=== PATIENT | female | born 1970 | race African-American/Black ===

== ENCOUNTER 2016-05-16 19:14 | Emergency (ER) | payer OTHER ==
[~2016-05-16] VITALS: Ht 167.6 cm; Wt 90.9 kg
[~2016-05-16 19:14] MED LIST: AMLO-512 PO; benadryl
[2016-05-16 19:21] VITALS: BP 132/89
[2016-05-16] MEDS ORDERED: AMLO-511 PO (19:29)
[2016-05-16] MEDS ORDERED: HYDROCODONE/ACETAMINOPHEN 5-325 MG TABLET PO ONE (20:15)
[2016-05-16] MEDS ORDERED: CLINDAMYCIN HCL 150 MG CAPSULE PO ONE (20:15)
== END 2016-05-16 20:28 | disposition home or self-care (01) ==
LOC: EMS 19:15
DX: K05.219 Aggressive periodontitis, localized, unspecified severity (principal); I10 Essential (primary) hypertension; F17.210 Nicotine dependence, cigarettes, uncomplicated
CPT/HCPCS: 99283

== ENCOUNTER 2017-01-11 21:58 | Emergency (ER) | payer BC ==
[~2017-01-11] VITALS: Ht 167.6 cm; Wt 82.7 kg
[~2017-01-11 21:58] MED LIST changes: +AMLO-511 PO; -AMLO-512 PO; -benadryl
[2017-01-11] MEDS ORDERED: AMOX TR/POT CLAV 875 MG/125 MG TABLET PO ONE (23:30)
[2017-01-11] MEDS ORDERED: OxyCODONE HCL/ACETAMINOPHEN 5-325 MG TABLET PO ONE (23:30)
[2017-01-11] MEDS ORDERED: KETOROLAC TROMETHAMINE 60 MG/2 ML VIAL IM ONE (23:30)
[2017-01-11 23:42] VITALS: BP 141/89
== END 2017-01-11 23:44 | disposition home or self-care (01) ==
LOC: EMS 22:00
DX: K04.7 Periapical abscess without sinus (principal); I10 Essential (primary) hypertension; F17.210 Nicotine dependence, cigarettes, uncomplicated
CPT/HCPCS: 96372; 99283; 99406; J1885

== ENCOUNTER 2017-03-10 20:14 | Emergency (ER) | payer BC ==
[~2017-03-10] VITALS: Ht 167.6 cm; Wt 81.8 kg
[2017-03-10 20:18] VITALS: BP 136/102
[2017-03-10 21:13] LABS: APPEARANCE,URINE CLEAR (CLEAR); BILIRUBIN,URINE NEGATIVE (NEGATIVE); GLUCOSE, URINE (UA) NEGATIVE (NEGATIVE); KETONES,URINE NEGATIVE (NEGATIVE); LEUKOCYTE ESTERASE ,URINE TRACE (NEGATIVE); NITRATE,URINE NEGATIVE (NEGATIVE); OCCULT BLOOD,URINE MODERATE (NEGATIVE); PROTEIN,URINE TRACE (NEGATIVE); UROBILINOGEN,URINE 0.2 mg/dL (<=1.0)
[2017-03-10 21:14] LABS: HCG,QUAL RESULT NEGATIVE (NEGATIVE)
[2017-03-10 21:27] LABS: BACTERIA,URINE Few /HPF (None Seen); SQUAMOUS EPITHELIAL CELL,UR Few /LPF (None Seen)
[2017-03-10] MEDS ORDERED: IBUPROFEN 800 MG TABLET PO ONE (22:00)
== END 2017-03-10 23:22 | disposition home or self-care (01) ==
LOC: EMS 20:15
DX: N39.0 Urinary tract infection, site not specified (principal); I10 Essential (primary) hypertension; F17.210 Nicotine dependence, cigarettes, uncomplicated
CPT/HCPCS: 74176; 87086; 99285

== ENCOUNTER 2017-10-13 10:26 | Emergency (ER) | payer BC ==
[~2017-10-13] VITALS: Ht 167.6 cm; Wt 85.9 kg
[2017-10-13] MEDS ORDERED: HYDR25TA PO (10:30)
[2017-10-13] MEDS ORDERED: AMLO10TA55 PO (10:30)
[2017-10-13] MEDS ORDERED: CYCLOBENZAPRINE HCL 10 MG TABLET PO ONE (11:45)
[2017-10-13] MEDS ORDERED: KETOROLAC TROMETHAMINE 60 MG/2 ML VIAL IM ONE (11:45)
[2017-10-13 12:03] LABS: BILIRUBIN,URINE NEGATIVE (NEGATIVE); GLUCOSE, URINE (UA) NEGATIVE (NEGATIVE); KETONES,URINE NEGATIVE (NEGATIVE); LEUKOCYTE ESTERASE ,URINE LARGE (NEGATIVE); NITRATE,URINE POSITIVE (NEGATIVE); OCCULT BLOOD,URINE MODERATE (NEGATIVE); PROTEIN,URINE NEGATIVE (NEGATIVE); UROBILINOGEN,URINE 0.2 mg/dL (<=1.0)
[2017-10-13 12:09] LABS: APPEARANCE,URINE HAZY (CLEAR)
[2017-10-13 12:11] LABS: BACTERIA,URINE Moderate /HPF (None Seen); SQUAMOUS EPITHELIAL CELL,UR Moderate /LPF (None Seen)
[2017-10-13 12:46] VITALS: BP 121/68
== END 2017-10-13 12:47 | disposition home or self-care (01) ==
LOC: EMS 10:27
DX: M51.36 Other intervertebral disc degeneration, lumbar region (principal); M12.88 Other specific arthropathies, not elsewhere classified, other specified site; N39.0 Urinary tract infection, site not specified; M25.471 Effusion, right ankle; M25.472 Effusion, left ankle; I10 Essential (primary) hypertension; F17.210 Nicotine dependence, cigarettes, uncomplicated; Z79.899 Other long term (current) drug therapy
CPT/HCPCS: 72131; 81001; 84703; 87077; 87086; 87186; 96372; 99285; 99406; J1885

== ENCOUNTER 2022-01-09 06:00 | Emergency (ER) | payer BC ==
[~2022-01-09] VITALS: Ht 175.3 cm; Wt 77.3 kg
[~2022-01-09 06:00] MED LIST changes: -AMLO-511 PO; +AMLO10TA55 PO; +HYDR25TA2 PO
[2022-01-09 06:02] VITALS: BP 155/101
[2022-01-09] MEDS ORDERED: ACET-66 PO (07:48)
[2022-01-09] MEDS ORDERED: BACL10TA PO (07:48)
[2022-01-09] MEDS ORDERED: TRAM-559 PO (07:48)
[2022-01-09] MEDS ORDERED: IBUP-1554 PO (07:48)
== END 2022-01-09 08:05 | disposition home or self-care (01) ==
LOC: EMS 06:00
DX: S39.012A Strain of muscle, fascia and tendon of lower back, initial encounter (principal); M54.40 Lumbago with sciatica, unspecified side; G89.29 Other chronic pain; I10 Essential (primary) hypertension; F12.90 Cannabis use, unspecified, uncomplicated; Z98.890 Other specified postprocedural states; X58.XXXA Exposure to other specified factors, initial encounter; Y93.89 Activity, other specified; Y92.89 Other specified places as the place of occurrence of the external cause; Y99.8 Other external cause status
CPT/HCPCS: 99283

== ENCOUNTER 2022-04-03 09:45 | Emergency (ER) | payer BC, MEDICAID ==
[~2022-04-03] VITALS: Ht 167.6 cm; Wt 81.8 kg
[~2022-04-03 09:45] MED LIST changes: +ACET-66 PO; +BACL10TA PO; +IBUP-1554 PO; +TRAM-559 PO
[2022-04-03 09:48] VITALS: BP 144/69
[2022-04-03] MEDS ORDERED: KETOROLAC TROMETHAMINE 30 MG/ML VIAL IM ONE (11:45)
[2022-04-03] MEDS ORDERED: LIDOCAINE 5% TRANSDERMAL PATCH TD ONE (11:45)
[2022-04-03] MEDS ORDERED: BACL10TA PO (12:18)
[2022-04-03] MEDS ORDERED: IBUP-1492 PO (12:19)
[2022-04-03] MEDS ORDERED: TRAM-559 PO (12:21)
== END 2022-04-03 12:42 | disposition home or self-care (01) ==
LOC: EMS 10:04
DX: G89.29 Other chronic pain (principal); M54.50 Low back pain, unspecified; I10 Essential (primary) hypertension; F17.210 Nicotine dependence, cigarettes, uncomplicated; F12.90 Cannabis use, unspecified, uncomplicated
CPT/HCPCS: 99283; 96372; J1885

== ENCOUNTER 2024-03-17 17:33 | Emergency (ER) | payer MEDICAID ==
[~2024-03-17] VITALS: Ht 167.6 cm; Wt 72.7 kg
[~2024-03-17 17:33] MED LIST changes: +IBUP-1492 PO; -TRAM-559 PO; +TRAM50TA5 PO
[2024-03-17 17:48] VITALS: BP 139/107; PULSE 89; RESP 18; TEMP 100.5; O2SAT 98
[2024-03-17 20:43] LABS: COVID AG,FIA SOURCE NASAL SWAB
[2024-03-17] MEDS: KETOROLAC TROMETHAMINE 30 MG/ML VIAL IM ONE (20:49)
[2024-03-17] MEDS: TraMADol HCL 50 MG TABLET PO ONE (20:49)
[2024-03-17 20:52] LABS: INFLUENZA TYPE A NEGATIVE FOR TYPE A (NEGATIVE); INFLUENZA TYPE B NEGATIVE FOR TYPE B (NEGATIVE)
[2024-03-17 20:59] LABS: SARS-COV2 (COVID) ANTIGEN,FIA Positive (Negative)
[2024-03-17] MEDS ORDERED: NIRM1TAB10 PO (21:43)
[2024-03-17] MEDS ORDERED: TRAM50TA5 PO (21:44)
== END 2024-03-17 22:41 | disposition home or self-care (01) ==
LOC: EMS 17:33
DX: U07.1 COVID-19 (principal); F12.90 Cannabis use, unspecified, uncomplicated; I10 Essential (primary) hypertension; M54.50 Low back pain, unspecified; F17.210 Nicotine dependence, cigarettes, uncomplicated; Z79.899 Other long term (current) drug therapy
CPT/HCPCS: 99283; 87426; 87804; 96372; J1885